=== PATIENT | male | born 1990 | race Caucasian/White ===

== ENCOUNTER 2022-08-03 21:45 | Emergency (ER) | payer OTHER, SELFPAY ==
[2022-08-03 21:46] VITALS: BP 138/85; PULSE 90; RESP 15; TEMP 37.2; O2SAT 99
--- NOTE | 2022-08-03 22:18 | RAD_ITS ---
INDICATION: Intermittent chest palpitations, chest pain EXAMINATION/TECHNIQUE: X-RAY - XR Chest 1 View COMPARISON: None. FINDINGS: LINES/DEVICES: None. LUNGS: No pulmonary edema or focal airspace consolidation. No sizable pleural effusion. No pneumothorax detected. MEDIASTINUM AND CARDIOVASCULAR STRUCTURES: Heart size within normal limits. Mediastinal contours unremarkable. BONES AND SOFT TISSUES: No acute findings. RAD/Chest 1 View (Portable) IMPRESSION: No radiographic evidence of acute cardiopulmonary disease. Electronically Signed: Rustam Manriquez MD at 22:43 EDT ,
[2022-08-03 22:23] LABS: Absolute Lymphocyte Count 2.39 X10^3/uL (0.83-4.51); Absolute Neutrophil Count 4.2 X10^3/uL (2.0-7.7); Basophil# 0.08 X10^3/uL; Eosinophil# 0.38 X10^3/uL; Eosinophils% 4.8 % (0-5); Hematocrit 45.1 % (40-54); Hemoglobin 15.1 g/dL (13.0-16.5); Lymphocyte # 2.39 X10^3/ul (0.83-4.51); Lymphocyte % 30.4 % (19-41); Mean Corp Hgb Conc 33.5 g/dL (32-36); Mean Corpuscular Hgb 31.5 pg (27.0-32.0); Mean Corpuscular Volume 94.2 fL (80-94); Mean Platelet Vol. 9.5 fl (6.2-12.0); Monocyte# 0.77 X10^3/uL; Monocyte% 9.8 % (0-10); NRBC Flagged by Analyzer 0 % (0-5); Neutrophil # 4.23 X10^3/uL (2.7-7.7); Neutrophil % 53.7 % (47-70); Platelet Count 280 K/mm3 (150-450); RBC Distribution Width CV 11.7 % (11.6-14.6); RBC Distribution Width SD 40.4 fl (35.1-43.9); Red Blood Count 4.79 M/mm3 (4.6-6.2); White Blood Count 7.9 K/mm3 (4.4-11.0)
--- NOTE | 2022-08-03 22:40 | ED.VIS.CHEST ---
HPI History of Present Illness Chief Complaint: Chest Pain Informant: patient Onset/Context/Timing Onset: Today Narrative Narrative: Patient presents secondary to palpitations. He states he did not sleep well last night was drinking a red bull at work this morning. He started having what he is describing as palpitations. He states it felt that his heart was beating harder than normal. He looked up symptoms of a heart attack and convinced himself he was having a heart attack. He states he was intermittently short of breath. He stopped drinking the red bull and went home. He had a few episodes after arriving home. He now presents late in the evening for evaluation. [facility] Medical History no medical history no medical history Home Medications NK 08/03/22 [History Last Taken Unknown] Allergy/AdvReac Type Severity Reaction Status Date / Time No Known Allergies Allergy Verified 08/03/22 23:42 Surgical History no surgical history Social History Smoking Status: Light Smoker (<10/day) ROS ROS ED Constitutional Constitutional ED: Denies chills or fever(s) Eyes Eyes: Denies discharge from eye(s) ENT ENT ED: Denies discharge from eye(s) or sore throat Cardiovascular Cardiovascular: Reports chest pain and palpitations Respiratory/Chest Respiratory/Chest: Reports dyspnea; Denies cough Gastrointestinal Gastrointestinal: Denies abdominal pain, nausea or vomiting Genitourinary Genitourinary ED: Denies dysuria Musculoskeletal Musculoskeletal: Denies back pain or extremity pain Integumentary Denies Abrasions or rash Neurologic Neurologic: Denies headache(s) or weakness Psychiatric Psychiatric: Reports anxiety Allergic/Immunologic Allergic/Immunologic ED: Denies lip swelling or urticaria EXAM Physical Exam Const Vital Signs: 08/03/22 21:46 08/03/22 22:58 Temperature 98.9 F Temperature Source Temporal Pulse Rate 90 Respiratory Rate 15 Blood Pressure 138/85 H Blood Pressure Mean 102 Pulse Ox 99 Oxygen Delivery Method Room Air Room Air Positive well nourished and well developed General Appearance ED: well developed HEENT Reports normocephalic and head/scalp atraumatic Eyes PERRL and EOMs intact bilaterally Neck supple Chest Wall inspection of chest normal and palpation of chest normal Resp normal respiratory effort and clear to auscultation bilaterally Cardio regular rate and regular rhythm GI normal to inspection, nondistended, normoactive bowel sounds Palpation: soft Extremity normal to inspection Neuro oriented x3 and no sensory deficits noted Sensorium / Orientation: alert Motor Exam: strength 5/5 throughout Psych Mood & Affect: anxious Skin no rashes or lesions noted MDM MDM MDM Narrative Medical decision making narrative: Patient was placed on surveillance monitor. EKG obtained to evaluate for cardiac arrhythmia/ischemia. Chest x-ray obtained to evaluate for acute lung pathology, cardiac size, or mediastinal abnormality. Labwork obtained to evaluate for leukocytosis, anemia, and electrolyte derangement. Lab Data Attestation: I reviewed the patient's lab results. Labs: Laboratory Results - last 24 hr 08/03/22 08/03/22 08/03/22 22:07 22:07 22:07 WBC 7.9 RBC 4.79 Hgb 15.1 Hct 45.1 MCV 94.2 H MCH 31.5 MCHC 33.5 RDW Std Deviation 40.4 RDW Coeff of Dustin 11.7 Plt Count 280 MPV 9.5 Immature Gran % (Auto) 0.300 Neut % (Auto) 53.7 Lymph % (Auto) 30.4 Lawrence % (Auto) 9.8 Eos % (Auto) 4.8 Baso % (Auto) 1.0 Absolute Neuts (auto) 4.2 Absolute Lymphs (auto) 2.39 Nucleated RBC % 0 Sodium 138 Potassium 3.3 L Chloride 102 Carbon Dioxide 29.0 Anion Gap 7 BUN 11 Creatinine 0.87 Est GFR (MDRD) Af Amer 132 Est GFR (MDRD) Non-Af 109 BUN/Creatinine Ratio 12.7 Glucose 94 Calcium 9.4 Troponin I High Sens 3 TSH 1.41 Radiography Chest X-Ray - ED: 1 View, Read by ED Physician, Normal, Heart, Lungs and Mediastinum Diagnostic Testing: Clinical Impression(s) from Imaging Studies Chest X-Ray 08/03/22 22:18 IMPRESSION: No radiographic evidence of acute cardiopulmonary disease. Electronically Signed: Rustam Manriquez MD at 22:43 EDT , EKG Initial EKG: Attestation: I personally reviewed and interpreted this EKG as follows: Interpretation: Sinus Rhythm (Sinus at 74 with no acute ischemia.) Differential Diagnosis Chest pain/SOB: ACS ACS: Positive for no evidence of ACS based on cardiac biomarkers and EKG without ischemia and pneumothorax Reason(s) pneumothorax less likely: Positive for bilateral breath sounds and [employer] withhout PTX Treatment and Re-Evaluation :: CBC is unremarkable. Chemistry studies significant only for slightly low potassium at 3.3. Troponin is normal at 3. TSH is normal at 1.41. I did review the patient's surveillance monitor during his stay. He had no evidence of arrhythmias. He was given oral potassium replacement here. EKG and chest x-ray are both unremarkable. Patient is reassured with this work-up. Return instructions been provided. Discharge Plan Triage Chief Complaint: Chest Pain ED Provider: Daphney Madrigal Dx/Rx/DC Orders Clinical Impression: Palpitations Instructions: ED Palpitations Prescriptions: No Action NK Primary Care Provider: Care Physician,No Primary Referrals: Daisy Gramajo DO [Med Staff - Therapy Manager] - As Needed Care Physician,No Primary [Primary Care Provider] - Disposition Disposition: Home, Self Care
[2022-08-03 22:53] LABS: Anion Gap 7 (5-15); BUN 11 mg/dL (7-18); BUN/Creat Ratio 12.7 RATIO (10-20); Calcium,Total 9.4 mg/dL (8.5-10.1); Chloride 102 mmol/L (98-107); Creatinine, Serum 0.87 mg/dL (0.70-1.30); EST Glomerular Filtration Rate 109 mL/min (>60); Est Glom Filt Rate - Afr Amer 132 mL/min (>60); Glucose 94 mg/dL (74-106); Potassium 3.3 mmol/L (3.5-5.1); Sodium Level 138 mmol/L (136-145); Troponin-I HS (w/2H Reflex) 3 pg/mL (3.0-78.0)
[2022-08-03 22:57] VITALS: BMI 24.5
[2022-08-03] MEDS: Potassium Chloride Oral Tablet 20 MEQ 40 MEQ PO (23:43)
[2022-08-03 23:44] LABS: Thyroid Stim Hormone (TSH) 1.41 uIU/mL (0.358-3.74)
[2022-08-04 00:04] VITALS: BP 125/71; PULSE 74; RESP 16; O2SAT 98
== END 2022-08-04 00:05 | disposition home or self-care (01) ==
PROVIDERS: Emergency Provider Emergency Medicine; Visit Provider Emergency Medicine
DX: R00.2 Palpitations (principal); F17.200 Nicotine dependence, unspecified, uncomplicated
CPT/HCPCS: 71045; 80048; 84443; 84484; 85025; 93005; 99283; A4216

== ENCOUNTER 2023-12-27 16:32 | Emergency (ER) | payer OTHER, SELFPAY ==
[2023-12-27 16:33] VITALS: BP 126/71; PULSE 96; RESP 17; TEMP 36.4; O2SAT 100; BMI 24.0
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
[2023-12-27 17:09] LABS: Absolute Lymphocyte Count 1.66 X10^3/uL (0.83-4.51); Absolute Neutrophil Count 8.8 X10^3/uL (2.0-7.7); Basophil# 0.08 X10^3/uL; Basophil% 0.6 % (0-1); Eosinophil# 0.56 X10^3/uL; Eosinophils% 4.4 % (0-5); Hematocrit 37.1 % (40-54); Hemoglobin 12.5 g/dL (13.0-16.5); Lymphocyte # 1.66 X10^3/ul (0.83-4.51); Lymphocyte % 13.1 % (19-41); Mean Corp Hgb Conc 33.7 g/dL (32-36); Mean Corpuscular Hgb 31.2 pg (27.0-32.0); Mean Corpuscular Volume 92.5 fL (80-94); Mean Platelet Vol. 9.7 fl (6.2-12.0); Monocyte# 1.57 X10^3/uL; Monocyte% 12.4 % (0-10); NRBC Flagged by Analyzer 0 % (0-5); Neutrophil # 8.77 X10^3/uL (2.7-7.7); Neutrophil % 69.2 % (47-70); POSITIVE DIFFERENTIAL YES; Platelet Count 338 K/mm3 (150-450); RBC Distribution Width CV 11.9 % (11.6-14.6); RBC Distribution Width SD 39.8 fl (35.1-43.9); Red Blood Count 4.01 M/mm3 (4.6-6.2); White Blood Count 12.7 K/mm3 (4.4-11.0)
[2023-12-27 17:11] LABS: Differential Indicated SCAN CRITERIA MET
[2023-12-27 17:19] LABS: International Normalized Ratio 1.2; Prothrombin Time (Protime)PT. 15.1 SECONDS (11.7-14.9)
[2023-12-27 17:20] LABS: Anion Gap 5 (5-15); BUN 11 mg/dL (7-18); BUN/Creat Ratio 16.4 RATIO (10-20); Calcium,Total 9.3 mg/dL (8.5-10.1); Chloride 103 mmol/L (98-107); Creatinine, Serum 0.67 mg/dL (0.70-1.30); EST Glomerular Filtration Rate 146 mL/min (>60); Est Glom Filt Rate - Afr Amer 177 mL/min (>60); Estimated Creatinine Clearance 170.14 ml/min; Glucose 106 mg/dL (74-106); Partial Thromboplast Time 30.6 Seconds (24.1-36.2); Potassium 3.8 mmol/L (3.5-5.1); Sodium Level 137 mmol/L (136-145)
[2023-12-27 17:34] VITALS: BP 120/78; PULSE 81; RESP 19; O2SAT 98
[2023-12-27 17:39] LABS: Differential Comment SCANNED
[2023-12-27 17:54] VITALS: BP 114/72; PULSE 81; RESP 18; O2SAT 98
[2023-12-27 18:37] VITALS: BP 121/81; PULSE 81; RESP 18; TEMP 36.6; O2SAT 97
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
[2024-01-01 09:43] LABS: Pathologist Review Reviewed
== END 2023-12-27 19:09 | disposition short-term general hospital (02) ==
PROVIDERS: Emergency Provider Emergency Medicine; Visit Provider Emergency Medicine
DX: S22.43XA Multiple fractures of ribs, bilateral, initial encounter for closed fracture (principal); S27.1XXA Traumatic hemothorax, initial encounter; V86.95XA Unspecified occupant of 3- or 4- wheeled all-terrain vehicle (ATV) injured in nontraffic accident, initial encounter; F17.200 Nicotine dependence, unspecified, uncomplicated
CPT/HCPCS: 70450; 71260; 72125; 74177; 80048; 85025; 85610; 85730; 99284; Q9967; A4216

== ENCOUNTER → 2023-12-27 | Outpatient (CLI) | payer OTHER, SELFPAY ==
--- NOTE | 2023-12-27 16:15 | RAD_ITS ---
EXAM: XR BILATERAL RIBS AND AP CHEST, 3 OR MORE VIEWS CLINICAL INDICATION: PAIN TECHNIQUE: Frontal and oblique views of the bilateral ribs and frontal view of the chest. COMPARISON: 08/03/2022 FINDINGS: LUNGS AND PLEURAL SPACES: There is a moderate to large left-sided pleural effusion. No pneumothorax. HEART: Unremarkable. Cardiac silhouette not enlarged. MEDIASTINUM: Central airways and mediastinal contour are unremarkable. BONES/JOINTS: There are fractures of left sixth, seventh and eighth ribs. RAD/Ribs Uni Min 3V w/PA Chest IMPRESSION: Fractures of the left sixth through eighth ribs. There is a moderate to large left-sided pleural effusion present. Electronically Signed: Tello Santos MD at 17:25 EDT ,
== END | disposition home or self-care (01) ==
LOC: RAD 16:06
PROVIDERS: Referring Provider Chiropractor; Visit Provider Chiropractor
DX: S23.41XA Sprain of ribs, initial encounter (principal)
CPT/HCPCS: 71101

== ENCOUNTER 2024-02-05 13:07 | Emergency (ER) | payer OTHER, SELFPAY ==
[2024-02-05 13:08] VITALS: BP 125/75; PULSE 65; RESP 18; TEMP 36.6; O2SAT 99; BMI 24.0
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
[2024-02-05] MEDS: Lidocaine 1% (20 ml mdv) 20 ML Vial INFILT (13:41)
[2024-02-05] MEDS: Diphth,Pertuss(Acell),Tet Vac 0.5 ML Vial IM (13:41)
--- NOTE | 2024-02-05 13:44 | EDS_ITS ---
HPI History of Present Illness Chief Complaint: Trauma Informant: patient Narrative Narrative: 33-year-old male presenting to the emergency room with injury to the right little finger. Patient states he was cutting down some trees and somehow the rope that was attached to a branch was wrapped around his right little finger. He is right-hand dominant. He states when the branch moved the rope tightened and caused a laceration to the finger. Unknown last tetanus. He states is not very painful for him. He notes decreased sensation over the palmar aspect of the little finger but has sensation over the dorsum of the finger. He states he is able to move the finger normally. Tetanus Immunization: Unknown PFSH PFS Home Medications ?Medication ?Instructions ?Recorded ?Last Taken ?Type cephalexin 500 mg capsule 500 mg PO Q6 #28 CAPSULES 02/05/24 Unknown Rx hydrocodone-acetaminophen 5-325mg 1 tab PO Q6H PRN PRN Pain 3 days 02/05/24 Un known Rx 5mg-325mg #10 TABLETS Allergy/AdvReac Type Severity Reaction Status Date / Time codeine Allergy Mild PT UNSURE Verified 02/05/24 13:11 OF REACTION Social History Smoking Status: Light Smoker (<10/day) ROS ROS ED Constitutional Constitutional ED: Denies chills, fever(s) or weight loss Eyes Eyes: Denies change in vision or diplopia ENT ENT ED: Denies ear pain, rhinorrhea or sore throat Cardiovascular Cardiovascular: Denies chest pain, orthopnea, palpitations or racing heartbeat Respiratory/Chest Respiratory/Chest: Denies cough, dyspnea or orthopnea Gastrointestinal Gastrointestinal: Denies abdominal pain, diarrhea, nausea or vomiting Genitourinary Genitourinary ED: Denies dysuria, hematuria or urinary frequency Musculoskeletal Musculoskeletal: Reports other Details: See history of present illness ; Denies arthralgias or myalgias Integumentary Denies abscess or rash Neurologic Neurologic: Denies headache(s) or weakness Psychiatric Psychiatric: Denies anxiety, depression, suicidal ideation or suicidal thoughts Endocrine Endocrinology: Denies polydipsia, polyphagia or polyuria Allergic/Immunologic Allergic/Immunologic ED: Denies mouth swelling, tongue swelling or urticaria EXAM Physical Exam Const Vital Signs: 02/05/24 13:08 02/05/24 13:08 02/05/24 14:08 Temperature 98 F Temperature Source Temporal Pulse Rate 65 Respiratory Rate 18 Respiratory Effort Normal Non-Labored Respiratory Depth Normal Respiratory Pattern Normal Blood Pressure 125/75 H 112/67 Blood Pressure Mean 91 82 Pulse Ox 99 Oxygen Delivery Method Room Air 02/05/24 15:00 Temperature Temperature Source Pulse Rate 82 Respiratory Rate 18 Respiratory Effort Respiratory Depth Respiratory Pattern Blood Pressure 115/70 Blood Pressure Mean 85 Pulse Ox 99 Oxygen Delivery Method Room Air Positive well nourished and well developed General Appearance ED: well developed and NAD HEENT Reports normocephalic, head/scalp atraumatic and moist mucous membranes Eyes PERRL and EOMs intact bilaterally Neck no lymphadenopathy, supple and no JVD Resp normal respiratory effort and clear to auscultation bilaterally Cardio regular rate, regular rhythm and no murmurs GI normal to inspection, nondistended, normoactive bowel sounds and non-tender Palpation: soft Back/Spine no CVA tenderness and normal ROM Extremity Extremity Narrative: There is a laceration across the volar aspect extending from the medial surface of the middle of the proximal phalanx to the lateral surface and then extending distally over the medial surface to about the middle phalanx. I can visualize the length of the flexor tendons. There is violation of the tendon sheath near the middle phalanx. Direct testing of the superficialis and profundus tendons appear intact. He notes no sensation over the distal volar aspect of the finger. Loss of 2 point discrimination compared to the left. He notes sensation to touch over the dorsal surface of the finger. There is minimal venous bleeding. Distally the tip appears of normal color. There is a whitish hue to the skin over the lateral middle aspect of the laceration. However the nailbed is still pink. There is good capillary refill. The distal tip of the finger is pink. Total length of laceration is about 5 cm General Extremety ED: Negative for edema General Extremity: Negative for edema Neuro oriented x3 and CN's II-XII intact bilaterally Sensorium / Orientation: alert Motor Exam: strength 5/5 throughout Psych mental status grossly normal Mood & Affect: Negative for depressed or tearful Skin no rashes or lesions noted MDM MDM MDM Narrative Medical decision making narrative: Differential diagnosis includes but not limited to fracture dislocation tendon disruption tendon sheath violation neurovascular injury foreign body My independent interpretation of the plain films of the right little finger is no acute fracture. Tetanus was updated the patient received Ancef. I spoke with Dr. Hurt from plastic surgery who will be down to evaluate the patient. Dr. Ayala was able to Doppler pulse in the finger. Recommendation is that we closed the wound after irrigation and follow-up in the office for possible nerve repair surgery. Small amount of 1% lidocaine was placed locally into the proximal wound. Wound was irrigated with about 500 cc of sterile saline. Was washed with Shur-Clens irrigated again. Wound was closed using a total of about 21 simple interrupted 4-0 Ethilon sutures. It was dressed and then he was placed in a Ortho-Glass ulnar gutter splint with about 90 degrees of flexion of the MCP joint. Wound care discussed with patient. He will be following up with Dr. Hurt. History & Record Review Discussion w/independent historian: Patient Radiography Diagnostic Testing: Clinical Impression(s) from Imaging Studies Finger X-Ray 02/05/24 13:21 IMPRESSION: Soft tissue laceration underlying the proximal interphalangeal joint of the fifth digit. No radiopaque foreign body is seen. Electronically Signed: Richard Varma MD at 13:52 EDT , Management Discussion w/another healthcare provider: [employer] Plant [employer] (Dr Hurt) Discharge Plan Triage Chief Complaint: Trauma ED Provider: Carson Rosales Dx/Rx/DC Orders Clinical Impression: Finger laceration Instructions: ED Hand Laceration Nerve Injury Prescriptions: New hydrocodone-acetaminophen 5-325 mg tablet 1 tab PO Q6H PRN PRN (Reason: Pain) 3 Days Qty: 10 0RF cephalexin 500 mg capsule 500 mg PO Q6 Qty: 28 0RF Primary Care Provider: Care Physician,No Primary Referrals: Kevin Hurt MD [Med Staff - Active Staff] - Care Physician,No Primary [Primary Care Provider] - Print Language: Lithuanian Disposition Disposition: Home, Self Care
[2024-02-05] MEDS: Cefazolin 2 GM in 0.9% Normal Saline (100mL Bag) 100 ML IV (13:52)
--- NOTE | 2024-02-05 14:00 | CON.PCM.SX_ITS ---
Assessment & Plan Assessment/Plan (1) Finger laceration: (2) Laceration of digital nerve of finger: PLAN: Patient's RIGHT small finger is perfused distal to the zone of injury from the ulnar side (I can get a Doppler signal distal to the zone of injury and pulse ox reading 95% on the tip). ED planning to wash out finger and close primarily. He will be placed on Keflex and his tetanus was updated. ASA 325 mg daily as well to keep the digital artery open in the setting of crush injury. Counseled extensively today about vape cessation in the setting of risks to small finger (ischemia/ of the finger). I talked the patient extensively about the risks of surgery, including bleeding, infection, damage to surrounding structures (including digital artery leading to finger ischemia), surgical site dehiscence and wound formation, need for wound care, need for repeat operations, neuroma formation, failure to get back sensation, failure to obtain the desired result, DVT/PE, and the risks of anesthesia including . All of their questions were answered, and they agreed to proceed with scheduled surgery in the upcoming days for digital nerve repair. CPT codes for insurance prior authorization are as follows: 07797, [id number] HPI Consult Data Date of Consult: 02/05/24 HPI Narrative HPI Narrative: CHERRIE VALENCIA, is a 33 M who presents with a volar right small finger degloving injury from a rope. 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 Patient reporting sharp, severe pain in the right hand, worsened by movements and improved with rest and elevation. RHD He vapes The patient reports that they do not have any personal or family history of bleeding or clotting disorders. [facility] Home Medications ?Medication ?Instructions ?Recorded ?Last Taken ?Type cephalexin 500 mg capsule 500 mg PO Q6 #28 CAPSULES 02/05/24 Unknown Rx hydrocodone-acetaminophen 5-325mg 1 tab PO Q6H PRN PRN Pain 3 days 02/05/24 Unknown Rx 5mg-325mg #10 TABLETS Allergy/AdvReac Type Severity Reaction Status Date / Time codeine Allergy Mild PT UNSURE Verified 02/05/24 13:11 OF REACTION Social History Smoking Status: Light Smoker (<10/day) Physical Exam Narrative RIGHT UPPER EXTREMITY Volar laceration/avulsion to RIGHT small finger through the volar surface of P1 and extending distally over the radial aspect towards the DIP joint. Motor: Able to bend and extend all MP, PIP, and DIP joints. He does not seem to have a right small finger FDS (no left hand FDS either). His FDP is intact (able to bend right small finger DIP) Sensory: No discernable two point discrimination on the ulnar or radial borders of the small finger (>10 mm) distal to the zone of injury. Vascular: Right small Finger tip is warm and well perfused with <2 second capillary refill. 95% pulse oxymetry on the left small finger. Also, I was able to get a strong Doppler signal on the ulnar border of the digit distal to the zone of injury. Imaging Radiology Impression Finger X-Ray 02/05/24 13:21 IMPRESSION: Soft tissue laceration underlying the proximal interphalangeal joint of the fifth digit. No radiopaque foreign body is seen. Electronically Signed: Richard Varma MD at 13:52 EDT , Charges/Coding Visit Charges Office Visits / Consults: 63597 OV L5 New 60min
[2024-02-05 14:08] VITALS: BP 112/67
[2024-02-05 15:00] VITALS: BP 115/70; PULSE 82; RESP 18; O2SAT 99
[2024-02-05 15:58] VITALS: BP 110/70; PULSE 78; RESP 16; TEMP 36.6; O2SAT 99
== END 2024-02-05 15:59 | disposition home or self-care (01) ==
PROVIDERS: Emergency Provider Emergency Medicine; Referring Provider Emergency Medicine; Visit Provider Emergency Medicine
DX: S61.216A Laceration without foreign body of right little finger without damage to nail, initial encounter (principal); W49.09XA Other specified item causing external constriction, initial encounter; Y93.H2 Activity, gardening and landscaping; F17.200 Nicotine dependence, unspecified, uncomplicated; Z23 Encounter for immunization
CPT/HCPCS: 12002; 73140; 90715; 96365; 96366; 99283; A4216

== ENCOUNTER 2024-02-11 11:23 | Day surgery (SDC) | payer OTHER, SELFPAY ==
[2024-02-11] VITALS (8 sets, daily range): BP systolic 111–131; BP diastolic 60–88; PULSE 55–80; RESP 14–20; TEMP 36.2–36.4; O2SAT 94–100; BMI 23.8
[2024-02-11] MEDS: Lactated Ringers 1,000 ML 15 ML IV (11:50)
--- NOTE | 2024-02-11 12:41 | PRE.ANES_ITS ---
ASA Classification* ASA Classification ASA Classification: 2 Assessment & Plan Anesthesia* Anesthesia Assessment Anesthesia Assessment: Discussed sedation and/or anesthesia options, risks, benefits, and alternatives with patient/parents/legal guardian/POA. Questions invited. The patient/parents/legal guardian/POA seems to understand and agrees to proceed with anesthesia plan. Reviewed the physical assessment, medical history, allergy history and patient home medications list prior to surgery/procedure/anesthetic and documented any changes. Performed airway and anesthesia risk assessments. Anesthesia Type Anesthesia Type: General History Source History Obtained from:: Patient and Chart Anesthesia Focused Assessment* Temperature: 97.1 F Pulse Rate: 55 Blood Pressure: 111/60 Respiratory Rate: 18 Pulse Ox: 100 Oxygen Delivery Method: Room Air Airway Assessment Mouth opens: >3 cm Mallampati Score: I Teeth Condition: Caps/Crowns (Patient has 2 crowns right lower molars. They are tight.) Neck Range of motion (ROM): Full ROM Focused Labs Anesthesia Preop lab: CBC WBC 12.7 K/mm3 (4.4-11.0) H 12/27/23 16:52 RBC 4.01 M/mm3 (4.6-6.2) L 12/27/23 16:52 Hgb 12.5 g/dL (13.0-16.5) L 12/27/23 16:52 Hct 37.1 % (40-54) L 12/27/23 16:52 Plt Count 338 K/mm3 (150-450) 12/27/23 16:52 CHEMISTRY Potassium 3.8 mmol/L (3.5-5.1) 12/27/23 16:52 Sodium 137 mmol/L (136-145) 12/27/23 16:52 BUN 11 mg/dL (7-18) 12/27/23 16:52 Creatinine 0.67 mg/dL (0.70-1.30) L 12/27/23 16:52 Glucose 106 mg/dL (74-106) 12/27/23 16:52 TSH 1.41 uIU/mL (0.358-3.74) 08/03/22 22:07 COAG PT 15.1 SECONDS (11.7-14.9) H 12/27/23 16:52 Pre-Assessment Diagnosis/Proposed Procedure Planned Operative Procedure(s): RIGHT SMALL NERVE REPAIR X2 Anesthesia History 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 When Was Last Pacemaker Check QUESTION #4 FULL TEXT: You/Your Family Experience fever (hyperthermia) with Anesthesia Last Oral Intake Last Oral intake: Last Oral Intake NPO since 00:00 02/11/24 11:52 Meds taken in AM with sips of Yes 02/11/24 11:52 water? Meds patient instructed to take am of surgery PONV PONV - business account executive: PONV - business account executive Female No 02/06/24 14:12 HX of Motion Sickness No 02/06/24 14:12 HX of N/V After Surgery No 02/06/24 14:12 Non-Smoker No 02/06/24 14:12 Duration of Surgery greater Yes 02/06/24 14:12 than 60 minutes Number of Risk Factors 1 02/06/24 14:12 PONV Score Low Risk 02/06/24 14:12 Height & Weight Height & Weight: Anesthesia: Height & Weight Height 5 ft 11 in 02/11/24 11:52 Weight: 77.655 kg 02/11/24 11:52 Body Mass Index (BMI) 23.8 02/11/24 11:52 Respiratory Assessment Respiratory Assessment - business account executive: Respiratory Tract Infection Hx - business account executive Hx Respiratory Tract Infection No 02/06/24 14:12 STOP Sleep Apnea STOP Sleep Apnea - business account executive: STOP Sleep Apnea - business account executive Hx Hypertension No 02/06/24 14:12 Hx Sleep Apnea No 02/06/24 14:12 CPAP BIPAP Do you snore loudly (louder No 02/06/24 14:12 than talking or can be heard Do you often feel tired/ No 02/06/24 14:12 fatigued/ sleepy during daytime? Has anyone observed you stop No 02/06/24 14:12 breathing during sleep? STOP Results Negative 02/06/24 14:12 QUESTION #5 FULL TEXT : Do you snore loudly (louder than talking or can be heard through closed doors)? 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 Specify any problems Hx of Preganancy in last 3 N/A 02/06/24 14:12 Months Nurse Filling Out Transfusion NBUCHER 02/06/24 14:12 & Questions: Date: 02/06/24 02/06/24 14:12 Time: 14:14 02/06/24 14:12 Patient unable to answer at this time (ie. confused, unrespo /Reproduction History /Reproductive History - business account executive: /Reproductive Hx- business account executive Hx Now Gestational Age (in weeks): EDC: Hx Hx Para Hx Section SAB Active Medications Active Medications: Current Medications Generic Name Dose Route Start Last Admin Trade Name Freq PRN Reason Stop Dose Admin Cefazolin Sodium 2 gm/ N/A 20 mls @ 400 mls/hr 02/11/24 13:00 IV 02/11/24 13:02 PREOP ONE Lactated Ringer's 1,000 mls @ 15 mls/hr 02/11/24 11:30 02/11/24 11:50 IV 02/17/24 00:49 15 mls/hr .Q48H CAREN Administration Protocol PFSH Medical History Loss of hearing Wears contact lenses Wears glasses Alcohol use Marijuana use Open wound Ex-cigarette smoker Former smoker History of rib fracture History of echocardiogram Home Medications ?Medication ?Instructions ?Recorded ?Last Taken ?Type cephalexin 500 mg capsule 500 mg PO Q6 #28 CAPSULES 02/05/24 02/11/24 07:00 Rx hydrocodone-acetaminophen 5-325mg 1 tab PO Q6H PRN PRN Pain 3 days 02/05/24 Unknown Rx 5mg-325mg #10 TABLETS Allergy/AdvReac Type Severity Reaction Status Date / Time codeine Allergy Mild PT UNSURE Verified 02/11/24 11:49 OF REACTION Surgical History History of wisdom tooth extraction History of chest tube placement History of foot surgery Social History Smoking Status: Current every day smoker tobacco type: cigarettes and e- cigarettes Review of Systems (Anesthesia) ROS Narrative System reviewed and no additional complaints, except as documented.
--- NOTE | 2024-02-11 13:12 | PCM.HP.STD ---
HPI - General HPI Narrative CHERRIE VALENCIA, is a 33 M who presents right ring finger injury (including nerves, possible tendons). Current Encounter (DATE OF SURGERY H&P UPDATE): I saw and examined the patient this morning in pre-operative holding. We discussed risks and benefits of today's surgery and they would like to proceed. NO CHANGE in health history since last seen and evaluated. Ready to proceed with surgery. [facility] Medical History Loss of hearing Wears contact lenses Wears glasses Alcohol use Marijuana use Open wound Ex-cigarette smoker Former smoker History of rib fracture History of echocardiogram Home Medications ?Medication ?Instructions ?Recorded ?Last Taken ?Type cephalexin 500 mg capsule 500 mg PO Q6 #28 CAPSULES 02/05/24 02/11/24 07:00 Rx hydrocodone-acetaminophen 5-325mg 1 tab PO Q6H PRN PRN Pain 3 days 02/05/24 Unknown Rx 5mg-325mg #10 TABLETS Allergy/AdvReac Type Severity Reaction Status Date / Time codeine Allergy Mild PT UNSURE Verified 02/11/24 11:49 OF REACTION Surgical History History of wisdom tooth extraction History of chest tube placement History of foot surgery Social History Smoking Status: Current every day smoker (Patient used vaped today.) tobacco type: cigarettes and e-cigarettes Vital Signs Vital Signs Vital Signs: 02/11/24 11:52 02/11/24 11:52 02/11/24 12:54 Temperature 97.1 F L 97.1 F L Temperature Source Temporal Pulse Rate 55 L 55 L Respiratory Rate 18 18 Respiratory Pattern Normal Blood Pressure 111/60 111/60 Blood Pressure Mean 77 Blood Pressure Source Monitor Blood Pressure Position Semi-Fowlers Blood Pressure Location Left Arm Pulse Ox 100 100 Oxygen Delivery Method Room Air Room Air Weight Weight: 171 lb 3.2 oz Body Mass Index (BMI) 23.8 Physical Exam Narrative Right hand ring finger is warm and well perfused. Persistent numbness on the radial and ulnar borders of the small finger distal to the zone of injury . Motor: Bends DIP joint of the right small finger. No FDS on either side. Assessment & Plan Assessment/Plan (1) Laceration of digital nerve of finger: (2) Finger laceration: PLAN: Plan INTERVAL H&P PLAN, DATE OF SURGERY: We will proceed with surgery today. I talked the patient extensively about the risks of surgery, including bleeding, infection, damage to surrounding structures (including digital arteries leading to finger ischemia), surgical site dehiscence and wound formation, need for wound care, need for repeat operations, failure to obtain the desired result, DVT/PE, and the risks of anesthesia including . All of their questions were answered, and they agreed to proceed with surgery. I also talked to him about potential flexor tendon repair if it's partially cut, and he agreed to proceed.
[2024-02-11] MEDS: Cefazolin 2 GM in Syringe IV (13:19)
[2024-02-11] MEDS: Bupivacaine 0.25% 30 ML Vial (14:51)
[2024-02-11] MEDS: Sugammadex Sodium 200 MG/2 ML VIAL IV (14:52)
--- NOTE | 2024-02-11 15:07 | PCM.POST.ANE ---
Anesthesia: Postop Eval I Current Vital Signs Temperature: 97.6 F Pulse Rate: 75 Blood Pressure: 126/86 Respiratory Rate: 20 Pulse Ox: 95 Oxygen Delivery Method: Room Air Assessment Airway patent: Yes Spontaneous unlabored respirations: Yes Mental status: Awake nausea: No Vomiting: No Anesthesia Complication: No Fluid Hydration Crystalloid volume administer (ml): 700 Total IV fluid infused: 700 Progress Note Anesthesia document: Postop Eval 1 completed: Yes
--- NOTE | 2024-02-11 15:47 | PCM.OP.BLANK ---
Operative Report Date of Procedure: 02/11/24 Surgery/Procedure Date: 11 Feb 2024 Incision/Procedure Start Time: 13:44 Incision Close/Procedure End Time: 15:01 (1 hour 17 min) Tourniquet up 13:47, down 14:39 PATIENT: Jairo Graham SURGEON: Kevin Hurt MD APPRAISER BOATS AND MARINE: Araujokunal Elizabeth (held retractors and finger for better exposure, assisted with cutting suture underneath microscope) PRE-OPERATIVE DIAGNOSIS: Right small finger laceration with digital nerve injury POST-OPERATIVE DIAGNOSIS: same PROCEDURE PERFORMED: 1) Exploration of right upper extremity penetrating trauma (CPT: 40112) 2) Repair of right small finger radial digital nerve with cadaver allograft, 2.8 cm Gap (CPT: 64491) 3) Intraoperative use of the microscope (CPT: 20011) OPERATIVE FINDINGS: Intact ulnar digital nerve Lacerated radial digital nerve in multiple locations with segmental loss (2.8 cm) and Between fingertip radial digital nerve ending and proximal cut portion requiring nerve allograft Intact FDP tendon with A2 tony disruption from the trauma. INDICATIONS: Patient is a 33-year-old with a work-related injury on 05 February 2024 when he was cutting down trees. A rope severely lacerated the volar surface of the right small finger. On exam, he had no 2-point discrimination (greater than 10 cm) on both the radial and ulnar borders of the right small finger. He reports numbness and tingling on both sides of the finger today in preop. I talked to him extensively about exploration of the right upper extremity and possible nerve repair. He was in agreement and wanted to proceed. OPERATIVE DETAILS: Patient was correctly identified in preoperative holding and I marked his right small finger. He was taken back to the operating room where he was administered general anesthesia and he was prepped and draped in sterile fashion. A timeout was performed. Once appropriate level of anesthesia was obtained we began the procedure. The tourniquet was inflated to 250 mmHg and was on the arm. I remove the nylon sutures and irrigated the wound with 500 cc of normal saline. Under loupe magnification I then dissected a curvilinear volar flap at the level of the distal palm near the metacarpal head of the small finger so as to identify the cut end of the radial digital nerve and explore the rest of the wound. Care was taken to preserve the ulnar digital neurovascular bundle which was identified and noted to be intact throughout the zone of injury. The flexor tendon was also identified as intact but the A2 tony was disrupted. The radial stump of the nerve was identified in the distal palm and a small portion of the cut and trimmed to healthy nerve tissue with the microscissors. Attention was then turned to the distal wound and the flap of soft tissue that had been avulsed. There were no identified large portions of nerve within the flap as this tissue had been severely traumatized by the rope and there was no end of viable nerve to suture to proximally. We did identify a large nerve 2.8 cm distal to the proximal stump, which was at the distal wound edge. The small distal incision was used to free up the distal nerve. The nerve was at the level of the DIP joint and was likely innervating the fingertip, and therefore we thought it worthwhile to repair. We therefore placed a 2.8 cm cadaver allograft as an interposition graft (trimmed to fit). And repaired it with the microscope. This was done with the finger in full extension. There was no tension. 380 nylons were placed in the epineurium between the [place] nerve and the nerve cadaver allograft. Nerve protectors were then placed around the nerve repairs proximally and distally and secured with a vascular clip. The allograft was 1 mm x 3 cm advance nerve allograft from [employer]. the nerve connector was a 2 mm x 15 mm Axogaurd nerve connector. The tourniquet was let down and hemostasis was obtained with bipolar electrocautery. 8 cc of 0.25% plain Marcaine was used for digital block. The flaps were then tacked back into position with interrupted 3-0 nylon suture with care taken not to disrupt the nerve repair. Xeroform was applied and then a ulnar gutter splint. The patient was awakened and taken the PACU in stable condition. EBL: Minimal Anesthesia: General ASA: 1 IVF: 700 cc LR UOP: Unmeasured Transfusions: None 2g ancef for perioperative antibiotics POST-OPERATIVE PLAN: Splint for 1 week and then removal of splint and look at wounds. Lifting restrictions until wounds are fully healed. Discussed with the patient and his family how we will take approximately 2 months before he has sensation on the fingertip if the repair works (1 mm/day growth, after 2-week inflammatory stage).
[2024-02-11] MEDS: Acetaminophen 325 MG Tablet 650 MG PO (16:00)
[2024-02-11] MEDS: oxyCODONE 5 MG Tablet 10 MG PO (16:00)
--- NOTE | 2024-02-11 17:01 | POSTOPAN2_ITS ---
Anesthesia Postop Eval I Sum Postop Eval Completion status Anesthesia document: Postop Eval 1 completed: Yes Anesthesia Postop Eval I Summary Anesthesia Postop Eval I Summary: Anesthesia Postop Eval I: Assessment Summary Airway patent Yes 02/11/24 15:08 STEAM [email or web address].[email or web address] Spontaneous unlabored Yes 02/11/24 15:08 STEAM [email or web address] [email or web address].[email or web address] respirations Mental status Awake 02/11/24 15:08 STEAM [email or web address] [email or web address].[email or web address] nausea No 02/11/24 15:08 STEAM [email or web address] FILLING.[email or web address] Vomiting No 02/11/24 15:08 STEAM [email or web address].[email or web address] Anesthesia Postop Eval I: Fluid Summary Crystalloid volume administer 700 02/11/24 15:08 STEAM [email or web address].[email or web address] (ml) Colloids volume administered ( ml) Blood Product volume administered (ml) Total IV fluid infused 700 02/11/24 15:08 STEAM [email or web address].[email or web address] Anesthesia Postop Eval I: Summary Notes Anesthesia Complication No 02/11/24 15:08 STEAM [email or web address].[email or web address] Anesthesia Complication Comment: Post-operative progress note Anesthesia: Postop Eval II Evaluation Mental status: Awake and Calm Pain Level: 1 nausea: No Vomiting: No Complications Anesthesia Complication: No
--- NOTE | 2024-02-11 17:01 | PCM.POSTANE2 ---
Anesthesia Postop Eval I Sum Postop Eval Completion status Anesthesia document: Postop Eval 1 completed: Yes Anesthesia Postop Eval I Summary Anesthesia Postop Eval I Summary: Anesthesia Postop Eval I: Assessment Summary Airway patent Yes 02/11/24 15:08 BIOLOGICAL AIDE.[email or web address] Spontaneous unlabored Yes 02/11/24 15:08 BIOLOGICAL AIDE.[email or web address] respirations Mental status Awake 02/11/24 15:08 BIOLOGICAL AIDE.[email or web address] nausea No 02/11/24 15:08 BIOLOGICAL AIDE.[email or web address] Vomiting No 02/11/24 15:08 BIOLOGICAL AIDE.[email or web address] Anesthesia Postop Eval I: Fluid Summary Crystalloid volume administer 700 02/11/24 15:08 BIOLOGICAL [email or web address] (ml) Colloids volume administered ( ml) Blood Product volume administered (ml) Total IV fluid infused 700 02/11/24 15:08 BIOLOGICAL AIDE.[email or web address] Anesthesia Postop Eval I: Summary Notes Anesthesia Complication No 02/11/24 15:08 BIOLOGICAL AIDE.[email or web address] Anesthesia Complication Comment: Post-operative progress note Anesthesia: Postop Eval II Evaluation Mental status: Awake and Calm Pain Level: 1 nausea: No Vomiting: No Complications Anesthesia Complication: No
== END 2024-02-11 16:31 | disposition home or self-care (01) ==
LOC: SDC 11:25 → AC 11:26
PROVIDERS: Referring Provider Surgery Plastic and Reconstructive Surgery; Visit Provider Surgery Plastic and Reconstructive Surgery
PROC: (CPT 64912; principal; 2024-02-11 12:45)
DX: S64.496A Injury of digital nerve of right little finger, initial encounter (principal); W49.09XA Other specified item causing external constriction, initial encounter; Y93.H2 Activity, gardening and landscaping; Y99.0 Civilian activity done for income or pay; F17.210 Nicotine dependence, cigarettes, uncomplicated; F17.290 Nicotine dependence, other tobacco product, uncomplicated
CPT/HCPCS: 64912; 20103; 01810; J7120

== ENCOUNTER 2024-06-18 16:30 | Outpatient (RCR) | payer OTHER, SELFPAY ==
--- NOTE | 2024-04-16 07:06 | HP.OTEVAL_ITS ---
Patient's Visit Information Visit Information Visit Information: CHERRIE VALENCIA is a 34 year old M, referred to Occupational Therapy by Dr. Kevin Hurt MD, with a diagnosis of R small finger laceration with digital nerve injury. Date of Evaluation: 04/15/24 Occupational Therapist: [place], PHILLIP/Cristina, CHT Subjective Subjective: This 34 year old male was seen for OT eval with dx of right small finger injury- ( laceration with digital nerve involvement) pt states DOI was on Feb.04. States he works for a [employer] company and some how a rope was looped around his LF and it pulled- injuring his finger. pt underwent sx for repair of right SF radial digital nerve. use of cadaver allograft- per Dr. Barraza report intact FDP tendon with A2 tony disruption from the trauma. pt arrives today with orders for eval & treat - ROM exercise. pt states he has returned to work and has good use of his right had- some trouble with smaller objects. sensation is better but still reports some deficits. Pain right LF: Current Pain Intensity: 3 Pain Intensity Range: 2 ROM MP: right LF 0/90 left 0/75 PIP: right LF -15/65 left 0/95 DIP: right LF -20/20 left 0/90 ROM Comments: pt demo with limited right LF PIP and DIP flexion Strength Insurance And Benefits Clerk: right 80# left 110# Lateral Pinch: right 22# left 20# Tripod Pinch: right 28# left 24# Sensation Sensation Comments: left LF radial side of LF 3.84 ( interpretation diminished protective sensation) left LF tip 3.61 ( interpretation Diminished light touch) Goals Goal:Daily scar massage when approriate: Yes Goal:ROM equal to unaffected hand: Yes Goal:Insurance And Benefits Clerk/Pinch strength at least 75% of unaffected hand: Yes Goal:No pain with affected hand use: Yes Goal:Full use of affected hand in daily activities including work: Yes Goal:Improvement in sensation documented by [place] monofiliaments: Yes Comment: to 2.83 monofilament rage Other Goal: sensory re-ed: pt will demo understanding of using different textures to improve pts nerve re-growth by end of 1st session. Rehabilitation General Assessment: pt arrives following a right SF injury with repair of radial digital nerve s/p 9 weeks. pt demo with limited ROM of right sm and residual sensation deficits and right dominate hand weakness limiting pts IND. with ADLs and IADLs. pt would benefit from skilled OT services 1-2x week for 4-6 weeks for pt to reach maximal rehab potential. Today therapist ed. pt on sensory re-ed, scar mtg. AROM, PROM and blocking ex. Therapist ed. pt on prolonged stretch as well as holding blocking ex for flexion and ext for 6-8 sec. to increase soft tissue mobility vs short fast attempts at motion. therapist did instruct pt in use of silicon digi sleeve to provide scar tissue softening support ( pt to initiate once scab on radial side of his finger is gone) Pt demo understanding and agree to POC. Rehabilitation Potential: Good Anticipated Interventions Anticipated Interventions: A/AAROM/PROM, Strengthening, Scar Care, Triggerpoint Release, Sensory Retraining, Modalities, Orthoses, Joint Protection/Energy Conservation and Ergonomic Education Visit Plan Frequency: 1-2x /Week Duration: 4 Weeks General Plan: scar mtg sensory re-ed blocking ex for flexion and extension of PIP and DIP Prolonged stretch of flexion with use of rubber band strap ed. pt on may need night extension splint to balance PIP extensors with flexors pt receptive TEXT: Thank you for the opportunity to evaluate your patient. For Medicare and Medicare HMO plans, please review the plan of care and approve it. It will need to be FAXED BACK to us at [phone] for Medicare purposes. Please let me know if there are questions or concerns regarding this plan of care. Physician Signature: __Date:
--- NOTE | 2024-06-18 17:02 | HP.OTREVAL ---
Re-Evaluation Intro: Dr. Kevin Hurt MD, It has been my pleasure to treat CHERRIE VALENCIA over the last 8 visits for R small finger laceration with digital nerve injury. Please see the progress note below for an update on the occupational therapy plan of care! Subjective Subjective: arrives doing well states he feels his finger is straighter then it was Objective Objective/Function: R hand LF PIP -20 prior to treatment after treatment -10 Plan Plan Frequency: 1-2x /Week Duration: 4 Weeks Plan: cont to improve pts right LF extension avoiding hyper ext at right LF MCP Goals Goals Patient Goals: Regain Mobility, Return to Work, Use Hand/Wrist/Arm Normally Again and Be More Independent in ADLS Goal:Daily scar massage when approriate: Yes Goal Progress: Goal Met Goal:ROM equal to unaffected hand: Yes Goal Progress: Progressing Goal:Laborer Shaft Sinking/Pinch strength at least 75% of unaffected hand: Yes Goal Progress: Progressing Goal:No pain with affected hand use: Yes Goal Progress: Progressing Goal:Full use of affected hand in daily activities including work: Yes Goal Progress: Progressing Goal:Improvement in sensation documented by [place] monofiliaments: Yes Other Goal: sensory re-ed: pt will demo understanding of using different textures to improve pts nerve re-growth by end of 1st session. GOAL MET Anticipated Interventions Anticipated Interventions Anticipated Interventions: A/AAROM/PROM, Strengthening, Scar Care, Triggerpoint Release, Sensory Retraining, Modalities, Orthoses, Joint Protection/Energy Conservation and Ergonomic Education Re-Evaluation Ending Re-evaluation ending: Please do not hesitate to contact me at [phone] by phone or if you have questions or concerns regarding this new plan of care! Sincerely, Paige Corral
--- NOTE | 2024-07-16 16:18 | HP.OT.NRP ---
Patient Information Patient Information: CHERRIE VALENCIA was seen in my office for initial evaluation on 04/15/24. The following Plan of Care was established for this patient: POC Established Initial Frequency: 1-2x /Week Initial Duration: 4 Weeks Plan: cont to improve pts right LF extension avoiding hyper ext at right LF MCP Anticipated Interventions Anticipated Interventions: A/AAROM/PROM, Strengthening, Scar Care, Triggerpoint Release, Sensory Retraining, Modalities, Orthoses, Joint Protection/Energy Conservation and Ergonomic Education Last Seen Last Seen: This patient was last seen in our office 06/18/24. Pertinent comments regarding their Occupational therapy will appear below: This 34 year old male seen for OT with dx of digital nerve injury. Pt progressed throughout POC in ROM as well as decreased pain. pt discharge from OT services at this time due to multiple no shows in a row. At this point I will be discontinuing this patient from occupational therapy. I would be happy to see this patient again in the future if found appropriate by the physician. Thank you! Paige Corral
== END 2024-06-18 19:00 | disposition home or self-care (01) ==
LOC: OT 16:30
PROVIDERS: Referring Provider Surgery Plastic and Reconstructive Surgery; Visit Provider Surgery Plastic and Reconstructive Surgery
DX: S64.40XD Injury of digital nerve of unspecified finger, subsequent encounter (principal)
CPT/HCPCS: 97110; 97140; 97166; 97530